=== PATIENT | female | born 1955 | race Caucasian/White ===

== ENCOUNTER → 2016-12-17 | Outpatient (CLI) | payer OTHER | LOC: RAD 12-16 09:38 | DX: Z12.31 Encounter for screening mammogram for malignant neoplasm of breast (principal) ==

== ENCOUNTER → 2017-05-19 | Outpatient (CLI) | payer OTHER ==
[~2017-05-19] VITALS: Ht 172.7 cm; Wt 90.7 kg
[~2017-05-19] MED LIST: ALDACTONE25 MG PO; ALLER-EASE180 MG PO; ASPIR 8181 MG PO; ATORVASTATIN CA40 MG PO; LEXAPRO5 MG PO; MACRODANTIN50 M1 PO; METOPROLOL SUCC25 M1 PO; NORVASC5 MG PO; PROBIOTIC1 EAC1 PO; SINGULAIR 10 MG10 M1 PO; SYNTHROID PO; VENTOLIN HFA 1818 GM INH; VITAMIN D2000 UNIT PO
--- NOTE | ~2017-05-19 | P ---
[facility] [place] [address] PROCEDURE REPORT Name: SERGE FULLER Room #: REG [facility]#: [id number] Admission: 05/19/17 Attend Phys: Jose Maria Mcneil MD Discharge: Date of : 51 Report #: [id number] THIS REPORT FOR: //name// CC: Jose Maria Barrett MD BRIEF HISTORY: The patient is a 62-year-old woman with a history of reflux disease and significant esophagitis in the past. She has been using Prevacid, but had recent increase of reflux symptoms. PREOPERATIVE DIAGNOSIS: Reflux symptoms, on therapy for reflux disease, on PPI therapy. POSTOPERATIVE DIAGNOSES: 1. Mild diffuse gastritis. 2. Normal esophagus. 3. Normal duodenum. MEDICATIONS: Deep sedation with propofol per Anesthesia. SPECIMEN: Biopsies of gastritis. ESTIMATED BLOOD LOSS: 3 mL. PROCEDURE: EGD with biopsy. FINDINGS: Prior to propofol sedation, procedure of upper endoscopy was discussed with the patient as well as potential risks and its complications. She indicates she understands and desires to proceed. DESCRIPTION OF PROCEDURE: With the patient in left lateral decubitus position, the [employer] video endoscope was inserted in the cervical esophagus under direct vision without difficulty. Examination of this organ through its entire length revealed normal esophageal mucosa throughout the esophagus. The squamocolumnar junction was identified in its normal position. It was completely normal. No ulcers or erosions were seen, in view of her history of significant esophagitis in the past. Changes of Vasquez mucosa were not seen. No strictures or masses were seen. A significant hiatus hernia was not seen. Scope was advanced into the stomach, was examined on end view as well as retroflexed views. There was moderate erythema, but no ulcers or erosions were seen. Multiple biopsies were obtained of the antrum and body. Upon retroflexion, no mass lesions were seen. The pylorus, duodenal bulb and postoperative sweep were all inspected and noted to be within normal limits. At that point, the scope was slowly withdrawn and careful circumferential views confirmed above findings. The patient tolerated the procedure well. [facility] [address] [place] [address] PROCEDURE REPORT Name: SERGE FULLER Room #: REG [facility].#: [id number] Admission: 05/19/17 Attend Phys: Jose Maria Mcneil MD Discharge: Date of : 51 Report #: [id number] CONDITION OF THE PATIENT UPON DISCHARGE: Following procedure, the patient was drowsy and prepared for colonoscopy. INSTRUCTIONS TO THE PATIENT AND FAMILY AT THE TIME OF DISCHARGE: Even though she has had increase in reflux symptoms on therapy, there is no evidence of mucosal injury or neoplastic changes. Advised to continue her PPI and if she does well, she may try to reduce to less than daily as tolerated. Also, she may use an H2 emily such as ranitidine 150 mg as needed for breakthrough symptoms. She has not had any further dysphagia since last dilation and no stricture seen today. She is to return as needed. Proceed with colonoscopy. <ELECTRONICALLY SIGNED> By: Jose Maria Mcneil MD 05/20/17 0919 0816 0950 Jose Maria Mcneil MD /nt
--- NOTE | ~2017-05-19 | S ---
[facility] [place] [address] SURGICAL PATH RPT PROCEDURE Name: SERGE FULLER Room #: REG [facility].#: [id number] Admission: 05/19/17 Date of : 51 Discharge: Report #: [id number] Path Case #: [id number] PATHOLOGY REPORT COLLECTION DATE: 05/19/2017 RECEIVED DATE: 05/19/2017 SUBMITTING PHYS: Dr. Jose Maria Mcneil OTHER PHYS: Dr. Nico Barrett SPECIMEN(S) RECEIVED: A.Gastritis B.Ascending polyp C.Thickened fold at hepatic flexure * * * * * * * * * * * * FINAL DIAGNOSIS: A. "Gastritis," biopsy: - Gastric mucosa with mild reactive changes and minimal chronic inflammation. - Negative H. pylori immunohistochemical stain (block A1); control reacted appropriately. B. "Ascending polyp," biopsy: - Tubular adenoma; no high-grade dysplasia. C. "Thickened fold at hepatic flexure," biopsy: - Sessile serrated polyp; no dysplasia seen. COMMENT: The patient has a history of hyperplastic polyp in the area of the hepatic flexure thickened fold ([id number]). Part C is co-reviewed with Dr. Eli Huerta. Clinical and endoscopic correlation is required. (CLW:; 05/20/2017) PATHOLOGIST: Lolita Wong M.D. REPORT ELECTRONICALLY SIGNED BY: Lolita Wong M.D. DATE/TIME: 05/20/2017 14:19 * * * * * * * * * * * * GROSS PATHOLOGY: A. Received in formalin labeled "Serge Fuller, BX of gastritis," are 6 segments of tian soft tissue measuring 1.6 x 0.9 x 0.3 cm in aggregate dimensions and ranging from 0.2 to 0.6 cm in maximum dimension. The specimen is submitted entirely in cassette A1. B. Received in formalin labeled "Serge Fuller, polyp at ascending colon," is a segment of tian soft tissue measuring 0.3 cm in maximum dimension. The specimen is submitted entirely in cassette B1. [address] [address] SURGICAL PATH RPT PROCEDURE Name: SERGE FULLER Room #: REG [facility].#: [id number] Admission: 05/19/17 Date of : 51 Discharge: Report #: [id number] Path Case #: [id number] C. Received in formalin labeled "Serge Fuller, BX thickened fold at hepatic flexure," are 7 segments of tian soft tissue measuring 1.5 x 1.3 x 0.3 cm in aggregate dimensions and ranging from 0.2 to 0.5 cm in maximum dimension. The specimen is submitted entirely in cassette C1. (TSD; 05/19/2017) CLINICAL HISTORY: Pre-OP DX: Hx colon polyps, acid reflux Post-OP DX: Gastritis, colon polyp, diverticulosis INITIAL CPT CODE(S): A; 08171, 71846 B; 44474 C; 16682 Professional services performed by [facility] at [facility] [address], [place] [address] Technical services performed by [facility] at [address] [place] [address], [address], [place] [address]. [facility] [address] [place] [address] PHONE: [phone] DIRECTOR: Diogenes Ortiz M.D. * * * END OF REPORT * * *
--- NOTE | ~2017-05-19 | P ---
[facility] [place] [address] PROCEDURE REPORT Name: SERGE FULLER Room #: REG [facility]#: [id number] Admission: 05/19/17 Attend Phys: Jose Maria Mcneli MD Discharge: Date of : 51 Report #: [id number] THIS REPORT FOR: //name// CC: Jose Maria Barrett MD BRIEF HISTORY: The patient is a 62-year-old woman with a history of colon polyps. PREOPERATIVE DIAGNOSIS: History of colon polyps. POSTOPERATIVE DIAGNOSES: 1. Diminutive polyp, proximal ascending colon. 2. Thickened fold, hepatic flexure. 3. Moderate sigmoid diverticulosis coli. 4. Small internal hemorrhoids. MEDICATIONS: Deep sedation with propofol per anesthesia. SPECIMEN: 1. Polyp, proximal ascending colon. 2. Thickened fold, hepatic flexure. MEDICATIONS: Deep sedation with propofol per anesthesia. SPECIMENS: Thickened fold, hepatic flexure. ESTIMATED BLOOD LOSS: 3 mL. PROCEDURE: Colonoscopy to the cecum and terminal ileum with biopsy. FINDINGS: Prior to propofol sedation, procedure of colonoscopy was discussed with the patient as well as potential risks and its complications. She indicates she understands and desires to proceed. DESCRIPTION OF PROCEDURE: With the patient in left lateral decubitus position, digital examination was completed which revealed no abnormalities. Subsequently, the [employer] video colonoscope was introduced in the rectum, advanced under direct vision to the cecum. It was done with minimal difficulty. The cecum was identified by the ileocecal valve and the appendiceal orifice. I was able to visualize the distal segment of the terminal ileum, which was inspected and noted to be unremarkable. At that point, the scope was withdrawn and careful circumferential views were obtained. Upon slow withdrawal of the scope, the prep was noted to be good. The mucosa was within normal limits, normal vascular pattern and normal light reflex. As we withdrew the scope, a diminutive polyp was seen in the proximal ascending colon. It was removed with [facility] [address] [place] [address] PROCEDURE REPORT Name: SERGE FULLER Get Room #: REG [facility].#: [id number] Admission: 05/19/17 Attend Phys: Jose Maria Mcneil MD Discharge: Date of : 51 Report #: [id number] biopsy forceps. The scope was further withdrawn and in the hepatic flexure region tattoo berkowitz were seen. The previously noted thickened fold was once again identified. The mucosa was slightly nodular. The borders were very indistinct. It did have a benign appearance. It appeared to be similar to what was seen on previous endoscopic examinations. Multiple biopsies were obtained. As we withdrew the scope, no additional neoplastic lesions were seen. As we withdrew the scope through the left colon, in particular the sigmoid colon, moderately severe diverticular disease was seen without endoscopic evidence of diverticulitis. The scope was drawn into the rectum and upon retroflexion, very small hemorrhoids were seen. No other abnormalities were identified. The scope withdrawn and the patient tolerated the procedure well. CONDITION OF THE PATIENT UPON DISCHARGE: Following procedure, the patient drowsy, aroused and conversant. She will be discharged home when fully ambulatory. INSTRUCTIONS TO THE PATIENT AND FAMILY AT TIME OF DISCHARGE: The patient with findings as noted above. We will follow up on the path and make further recommendations. Previous biopsy showed the thickened fold at the hepatic flexure area to be a hyperplastic polyp. Again, we will make further recommendations after review of the pathology. She will return to care of Dr. Nico Barrett and return to see me as needed. Last colonoscopy was a little more than 5 years ago. Withdrawal time from the cecum was 23 minutes and 7 seconds. <ELECTRONICALLY SIGNED> By: Jose Maria Mcneil MD 05/20/17 0919 0852 1041 Jose Maria Mcneil MD /nt
== END | disposition home or self-care (01) ==
LOC: GI 05-05 10:33
DX: Z09 Encounter for follow-up examination after completed treatment for conditions other than malignant neoplasm (principal); D12.2 Benign neoplasm of ascending colon; K21.9 Gastro-esophageal reflux disease without esophagitis; K29.50 Unspecified chronic gastritis without bleeding; K57.30 Diverticulosis of large intestine without perforation or abscess without bleeding; K64.8 Other hemorrhoids; I10 Essential (primary) hypertension; J45.909 Unspecified asthma, uncomplicated; E78.00 Pure hypercholesterolemia, unspecified; Z85.850 Personal history of malignant neoplasm of thyroid; Z87.19 Personal history of other diseases of the digestive system; Z87.891 Personal history of nicotine dependence; Z98.41 Cataract extraction status, right eye; Z98.42 Cataract extraction status, left eye; Z98.890 Other specified postprocedural states; Z88.8 Allergy status to other drugs, medicaments and biological substances; Z79.82 Long term (current) use of aspirin; Z79.899 Other long term (current) drug therapy; Z86.010 Personal history of colon polyps
CPT/HCPCS: 62110; 62900

== ENCOUNTER → 2018-03-08 | Outpatient (CLI) | payer OTHER | LOC: BC 01:16 | DX: Z12.31 Encounter for screening mammogram for malignant neoplasm of breast (principal) ==

== ENCOUNTER → 2020-08-05 | Outpatient (CLI) | payer OTHER | LOC: BC 11:57 | PROVIDERS: ATTEND Family Medicine | DX: Z12.31 Encounter for screening mammogram for malignant neoplasm of breast (principal) ==

== ENCOUNTER 2021-02-04 15:31 | Emergency (ER) | payer OTHER ==
[~2021-02-04] VITALS: Ht 172.7 cm; Wt 93.4 kg
[2021-02-04 15:59] LABS: URINE BILIRUBIN NEGATIVE (Negative); URINE BLOOD TRACE (Negative); URINE CLARITY CLEAR; URINE COLOR YELLOW; URINE GLUCOSE-RANDOM* NEGATIVE (Negative); URINE KETONES NEGATIVE (Negative); URINE LEUKOCYTES-REFLEX NEGATIVE (Negative); URINE NITRITE-REFLEX NEGATIVE (Negative); URINE PROTEIN (DIPSTICK) NEGATIVE (Negative); URINE SPECIFIC GRAVITY >= 1.030 (1.005-1.035); URINE UROBILINOGEN 0.2 E.U./dl (0.2-1.0)
[2021-02-04 16:28] LABS: HEMATOCRIT 42.7 % (37.0-47.0); HEMOGLOBIN 14.4 gm/dL (12.0-15.0); MCH 30.5 pg (26.0-34.0); MCHC 33.7 g/dL (28.0-37.0); MCV 90.5 fL (80.0-100.0); PLATELET COUNT 135 thou/uL (150-400); RBC 4.71 mil/uL (4.20-5.00); RDW 13.7 % (10.5-14.5); WBC 20.7 thou/uL (4.0-11.0)
[2021-02-04 16:50] LABS: CREATININE 1.1 mg/dL (0.6-1.0); POTASSIUM 4.5 mmol/L (3.5-5.1)
[2021-02-04 16:58] LABS: ATYPICAL LYMPHS 3 %
[2021-02-04 17:00] LABS: ALBUMIN 4.3 g/dL (3.4-5.0); TOTAL PROTEIN 6.8 g/dL (6.4-8.2)
[2021-02-04] MEDS ORDERED: PEPCID20 MG PO (18:22)
[2021-02-04] MEDS ORDERED: ZOFRAN ODT4 MG PO (18:22)
[2021-02-04 18:29] VITALS: BP 139/68
--- NOTE | 2021-02-05 07:26 | EKG ---
[address] [place] [address] ELECTROCARDIOGRAM REPORT Name: SERGE FULLER Room #: [facility]#: [id number] Admission: 02/04/21 Attend Phys: Discharge: 02/04/21 Date of : 51 Report #: [id number] [facility] ED Test Date: 2021-02-04 Test Time: 16:06:55 Pat Name: SERGE FULLER Department: Room: Gender: F Library Page: IG : 1955 Requested By: Tyson Shen Order Number: [id number] MD: Kevin Modi Measurements Intervals [place] Rate: 65 P: 31 DC: 162 QRS: -22 QRSD: 96 T: 56 QT: 431 QTc: 449 Interpretive Statements Sinus rhythm Borderline left axis deviation Low voltage, precordial leads Abnormal R-wave progression, late transition Borderline T abnormalities, anterior leads Compared to ECG 11/22/1991 07:29:00 Low QRS voltage now present T-wave abnormality now present Electronically Signed On 02-05-2021 7:25:57 CDT by Kevin Modi [email or web address] <ELECTRONICALLY SIGNED> By: Kevin Modi MD, FACC 02/05/21 0725 1606 1606 Kevin Modi MD, FACC /EPI
== END 2021-02-04 18:41 | disposition home or self-care (01) ==
LOC: ER 15:31
PROVIDERS: Emergency Medicine
DX: K29.70 Gastritis, unspecified, without bleeding (principal); R10.32 Left lower quadrant pain; K31.84 Gastroparesis; I10 Essential (primary) hypertension; J45.909 Unspecified asthma, uncomplicated; E78.00 Pure hypercholesterolemia, unspecified; K21.9 Gastro-esophageal reflux disease without esophagitis; Z98.890 Other specified postprocedural states; Z85.850 Personal history of malignant neoplasm of thyroid; Z90.89 Acquired absence of other organs; Z79.51 Long term (current) use of inhaled steroids; Z79.891 Long term (current) use of opiate analgesic; Z79.899 Other long term (current) drug therapy; Z88.1 Allergy status to other antibiotic agents